=== PATIENT | female | born 1945 | race Caucasian/White ===

== ENCOUNTER 2018-09-17 10:52 | Emergency (ER) | payer MEDICAID ==
[~2018-09-17] VITALS: Ht 165.1 cm; Wt 64.0 kg
[2018-09-17 10:54] VITALS: BP 126/80
[2018-09-17] MEDS ORDERED: DEXAMETHASONE 4 MG TABLET PO ONE ×2 (11:30→12:00)
[2018-09-17] MEDS ORDERED: DEXAMETHASONE 4 MG TABLET ONE (11:33)
== END 2018-09-17 12:14 | disposition home or self-care (01) ==
LOC: ED 11:58
DX: H65.03 Acute serous otitis media, bilateral (principal); J00 Acute nasopharyngitis [common cold]
CPT/HCPCS: 71046; 99283

== ENCOUNTER 2018-10-12 16:27 | Emergency (ER) | payer MEDICAID ==
[~2018-10-12] VITALS: Ht 165.1 cm; Wt 62.5 kg
[2018-10-12 16:30] VITALS: BP 127/74
== END 2018-10-12 16:53 | disposition home or self-care (01) ==
LOC: ED 16:30
DX: H92.02 Otalgia, left ear (principal); Z87.891 Personal history of nicotine dependence
CPT/HCPCS: 99283

== ENCOUNTER 2019-08-29 11:28 | Emergency (ER) | payer MEDICAID ==
[~2019-08-29] VITALS: Ht 165.1 cm; Wt 63.1 kg
[2019-08-29 12:19] LABS: BASOPHILS # (AUTO) 0.08 x10^3/uL (0-0.1); BASOPHILS % (AUTO) 1 % (0-1); EOSINOPHILS # (AUTO) 0.12 x10^3/uL (0-0.4); EOSINOPHILS % (AUTO) 1 % (1-7); LYMPHOCYTES # (AUTO) 2.18 x10^3/uL (1-3.4); LYMPHOCYTES % (AUTO) 26 % (22-44); MD NO; MEAN CORPUSCULAR HEMOGLOBIN 30.3 pg (27.0-34.8); MEAN CORPUSCULAR VOLUME 89.2 fL (80-100); MEAN PLATELET VOLUME 8.2 fL (7.4-10.4); MONOCYTES # (AUTO) 0.31 x10^3/uL (0.2-0.8); MONOCYTES % (AUTO) 4 % (2-9); NEUTROPHILS # (AUTO) 5.74 x10^3/uL (1.8-6.8); NEUTROPHILS % (AUTO) 68 % (42-75); PLATELET COUNT 275 x10^3/uL (130-400); RED BLOOD COUNT 4.85 x10^6/uL (3.82-5.3); RED CELL DISTRIBUTION WIDTH 13.5 % (9.6-15.2)
--- NOTE | 2019-08-29 12:20 | NUR ---
THIS IS A 74 YO FEMALE WHO PRESENTS TO THE ER C/O LEFT SHOULDER PAIN "LIKE A PULLED MUSCLE" X A FEW DAYS AND NOTING BILAT ARM TINGLING EARLIER TODAY THAT HAS SINCE RESOLVED. PT AO X 4. SKIN PWD. RESP EVEN AND UNLABORED. PT ABLE TO SPEAK IN FULL 10-12 WORD SENTENCES W/O DIFFICULTY. PT NSR ON TANK HOOP BENDER. PT ON CONT BP, CARDIAC AND O2 MONITORS. PT AWARE WE ARE WAITING FOR LAB/IMAGING REUSLTS. CALL LIGHT WITHIN REACH. WILL CONT TO MONITOR PT.
[2019-08-29 12:25] LABS: ALBUMIN 3.7 g/dL (3.4-5.0); ANION GAP 6 mmol/L (5-15); CALCIUM 9.2 mg/dL (8.5-10.1); CHLORIDE 109 mmol/L (98-107); CREATININE 0.93 mg/dL (0.55-1.02)
[2019-08-29 12:28] LABS: TROPONIN I < 0.015 ng/mL (0.000-0.045)
[2019-08-29 13:07] VITALS: BP 113/64
== END 2019-08-29 13:12 | disposition home or self-care (01) ==
LOC: ED 13:10
DX: R06.00 Dyspnea, unspecified (principal); R94.31 Abnormal electrocardiogram [ECG] [EKG]
CPT/HCPCS: 36415; 71045; 80048; 82040; 84484; 85025; 93005; 99285

== ENCOUNTER 2019-10-21 11:31 | Emergency (ER) | payer MEDICAID ==
[~2019-10-21] VITALS: Ht 165.1 cm; Wt 64.9 kg
[2019-10-21 11:37] VITALS: BP 117/60
--- NOTE | 2019-10-21 11:53 | NUR ---
PT CAME IN CO OF RIGHT HIP PAIN. DENIES HAVING GLF OR ANY TRAUMA. PT AMBULATED INTO ROOM WITH A STEADY GATE. PT SAYS SHE HAS TRIED MASSAGE THERAPY AND STRETCHING BUT NOTHING SEEMS TO HELP THE PAIN. " THERE IS A PINCHING PAIN WHEN I WALK. THIS HAS BEEN GOING ON FOR ABOUT 10 DAYS AND ITS GETTING WORSE".
--- NOTE | 2019-10-21 12:04 | NUR ---
RECEIVED REPORT FROM EDD JONES. ASSUMING CARE AT THIS TIME.
--- NOTE | 2019-10-21 12:05 | NUR ---
PROVIDER AT BEDSIDE FOR ASSESSMENT
[2019-10-21] MEDS ORDERED: KETOROLAC 60 MG/2 ML ONE (12:13)
--- NOTE | 2019-10-21 12:18 | NUR ---
MEDS ADMIN PER AUG. TORADOL 30MG IM GIVEN. PT SITTING EDGE OF BED.
[2019-10-21] MEDS ORDERED: KETOROLAC 30 MG/1 ML IM ONE (12:30)
== END 2019-10-21 12:37 | disposition home or self-care (01) ==
LOC: ED 12:03
DX: M54.41 Lumbago with sciatica, right side (principal)
CPT/HCPCS: 96372; 99283; J1885